=== PATIENT | female | born 1980 | race Caucasian/White ===

== ENCOUNTER 2024-05-17 08:59 | Emergency (ER) | payer OTHER, SELFPAY ==
[2024-05-17 09:03] VITALS: BP 167/108
--- NOTE | 2024-05-17 10:27 | ED.MUSCINJ ---
HPI-Injury
General
Chief Complaint: Musculo-Skeletal Complaint
Source: patient
Exam Limitations: none
Time Seen by Provider: 05/17/24 10:02
History of Present Illness-Injury
Initial Injury comments:
44-year-old female presents complaining of worsening left neck pain that radiates to the upper shoulder and down the arm. There is no associated chest pain or shortness of breath. Occasionally she feels pain radiating down her back. She went to
the urgent care and was prescribed a muscle relaxer without relief. Typically she is on Valium Lamictal and lithium. No known injury. No rash. No fever. Difficult headache. She denies any noticed weakness to her left upper extremity.
Phy Exam
Physical Exam
Physical Exam:
General: Well-appearing female no acute respiratory distress
HEENT: Normocephalic atraumatic CV
Heart: Regular rate and rhythm no murmurs lungs: Clear no wheeze or rales
Neurologic exam: Alert normal gait. Good strength and sensation to the upper and lower extremities. Reflexes are 2+ lower extremities. Good muscle tone
Vascular: 2+ radial pulse bilateral wrist
Injury Course
Orders/Labs/Results
Orders:
Orders
05/17/24 09:08
Electrocardiogram (*1) Urgent
Reason for Study: Other
Other Reason for Exam: left neck pain
05/17/24 09:09
EKG- Treatment ONCE
05/17/24 10:16
Dexamethasone Sod Phosphate [Decadron] 10 mg IV NOW STA
Ketorolac [Toradol] 15 mg IV NOW STA
CR Cervical Spine 2 or 3 Vw Urgent
Comment:
Reason For Exam: neck pain
MDM/Problems Addressed
Differential Diagnosis Includes:
Left-sided neck pain with radiation down the arm. No chest pain. Do not suspect dissection. Question cervical strain versus radiculopathy. No fever to suggest infectious source
Will try to treat symptoms with Decadron and Toradol here. X-ray of cervical spine pending
*Critical Care Note
Total Time (30-74mins, 75-104mins- exclusive of procedures): Not Applicable
Update Note
Update Note:
Patient reexamined feels somewhat improved. X-ray of neck shows mild DDD at C5-C6 symptoms most consistent with radiculopathy. No red flags of cauda equina. No fever to suggest infectious source. Will recommend prednisone course. Will advised
that she follow-up with physiatry for further evaluation
ED Attending Note
-
Portions of this chart may have been created with voice recognition software.� Occasional wrong word or��sound alike� substitutions may have occurred due to the inherent limitations of voice recognition software.
Discharge Plan
Departure
Patient Disposition: Home (Routine Discharge)
Date of Disposition: 05/17/24
Time of Disposition: 13:02
Patient with high blood pressure during this ER visit?: No
Discharge Problem:
Cervical radiculopathy
Instructions: Radiculopathy (DC)
Prescriptions:
New
prednisone 10 mg Tablet
See Rx Instructions .ROUTE .COMPLEX Qty: 30 0RF
Rx Instructions:
Take By Mouth:
40 mg daily x3 days, 30 mg daily x3 days,
20 mg daily x3 days, 10 mg daily x3 days.
No Action
diazepam
10 mg PO DAILY PRN (Reason: anxiety)
lamotrigine
150 mg PO HS
lithium carbonate
900 mg PO HS
Referrals:
Omer Foster MD [Active] -
UNKNOWN - PT DOES,NOT KNOW [Family Provider] -
Stand Alone Forms: Return to Work
Activity Restrictions/Additional Instructions:
Continue with warm compresses to the neck. Use prescription medication as directed. Return for worsening symptoms otherwise follow-up with neck and back pain specialist
Interventions
Interventions:
*Risk Screen - Suicide Last Done: 05/17/24 10:53
*General Assessment Last Done: 05/17/24 10:53
*Neglect/Abuse Screening Last Done: 05/17/24 10:53
*ED COVID-19 Vaccine History Last Done: 05/17/24 10:53
ED-Musculoskeletal Assessment Last Done: 05/17/24 10:54
Discharge Date and Time
Print Language: [id number]
[2024-05-17 10:39] VITALS: BP 129/84
[2024-05-17] MEDS: DECADRON 10 MG IV (10:44)
[2024-05-17] MEDS: TORADOL 15 MG IV (10:45)
[2024-05-17 10:56] VITALS: BMI 25.1
[2024-05-17 11:00] VITALS: BP 140/92
[2024-05-17 12:00] VITALS: BP 150/82
[2024-05-17 13:00] VITALS: BP 146/99
== END 2024-05-17 13:16 | disposition home or self-care (01) ==
LOC: EMR 08:59
PROVIDERS: EMERGENCY PHYSICIAN Emergency Medicine
DX: M50.122 Cervical disc disorder at C5-C6 level with radiculopathy (principal); V89.2XXA Person injured in unspecified motor-vehicle accident, traffic, initial encounter
CPT/HCPCS: 99283; 96374; 96375; 72040; 93005